=== PATIENT | male | born 1985 | race Caucasian/White ===

== ENCOUNTER 2018-04-24 08:24 | Emergency (ER) | payer MEDICAID | END 2018-04-24 09:42 | disposition home or self-care (01) | LOC: ED 08:24 ==

== ENCOUNTER 2020-03-26 11:55 | Emergency (ER) | payer MEDICAID ==
[2020-03-26 12:13] VITALS: BP 135/80; PULSE 100; O2SAT 96
--- NOTE | 2020-03-26 12:28 | ERPHSYRPT ---
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 Pt is R handed and denies other/prevoius injuries. Method of Injury: fell Quality: constant Severity of Pain-Max: moderate Severity of Pain-Current: moderate Extremities Pain Location: hand: right Modifying Factors: Improves With: movement Associated Symptoms: No back pain, No chills, No chest discomfort, No chest pain, No dyspnea, No fever, No jaw pain, No nausea, No neck pain, No sweating, No short of breath, No vomiting Allergies/Adverse Reactions: No Known Drug Allergies Allergy (Verified 03/26/20 12:13) Hx Tetanus, Diphtheria Vaccination/Date Given: (unknown) Hx Influenza Vaccination/Date Given: No Travel Risk - International Travel Have you traveled outside of the country in past 3 weeks: No - Coronavirus Screening Are you exhibiting any of the following symptoms?: No Close contact with a COVID-19 positive Pt in past 14-21 Days: No - Review of Systems Constitutional: No Symptoms Eyes: No Symptoms Ears, Nose, & Throat: No Symptoms Respiratory: No Symptoms Cardiac: No Symptoms Abdominal/Gastrointestinal: No Symptoms Genitourinary Symptoms: No Symptoms Skin: Other (Laceration R dorsal hand) Neurological: No Symptoms Psychological: No Symptoms Endocrine: No Symptoms Hematologic/Lymphatic: No Symptoms Immunological/Allergic: No Symptoms - Past Medical History Pertinent Past Medical History: No - Past Surgical History Past Surgical History: Yes - Social History Smoking Status: Never smoker Exposure to second hand smoke: No Drug Use: none Patient Lives Alone: No - Nursing Vital Signs Nursing Vital Signs: Initial Vital Signs Temperature 98.1 F 03/26/20 12:04 Pulse Rate 100 H 03/26/20 12:04 Blood Pressure 135/80 03/26/20 12:04 O2 Sat by Pulse Oximetry 96 03/26/20 12:04 Pain Scale Pain Intensity 6 - Physical Exam General Appearance: no apparent distress Eyes, Ears, Nose, Throat Exam: normal ENT inspection Neck Exam: normal inspection, non-tender Cardiovascular/Respiratory Exam: normal breath sounds, regular rate/rhythm, heart sounds normal Abdominal Exam: non-tender, soft Back Exam: normal inspection, normal range of motion, No CVA tenderness, No vertebral tenderness Shoulder Exam: normal inspection, non-tender, no evidence of injury Elbow/Forearm Exam: normal inspection, non-tender, no evidence of injury Wrist Exam: normal inspection, non-tender, no evidence of injury Hand Exam: bone tenderness (TTP R 3rd metacarpal distally w 2cm superficial laceration over MCP joint/FROM/No tendon injury/Good radial pulse, distal sensation, and capillary return) DTR - Upper Extremity Exam: bicep (R): 2+, bicep (L): 2+ Neuro/Tendon Exam: normal sensation, normal motor functions, normal tendon functions, responds to pain, no evidence tendon injury, No motor deficit, No sensory deficit Skin Exam: normal color SpO2 Interpretation: normal SpO2: 96 O2 Delivery: Oxymizer - Course Nursing assessment & vital signs reviewed: Yes - Radiology Exams Hand X-ray Interpretation: Interpreted by me (R hand neg) Ordered Tests: Active Orders 24 hr Category Date Time Status HAND (MINIMUM 3 VIEWS) Stat Exams 03/26/20 12:26 Taken - Progress Progress: improved Progress Note: 03/26/20 12:55 R 4th digit MCP lac cleaned w Hibiclens per nursing/NVI/Not sutured because >12hrs old Counseled pt/family regarding: need for follow-up - Departure Departure Disposition: Home Clinical Impression: Contusion of hand, right, Hand laceration Condition: Stable Critical Care Time: No Referrals: KATHERIN ANTONY [Primary Care Provider] - Instructions: Hand Pain (DC) Additional Instructions: Ice to hand for 12-24 hours Motrin/tylenol for pain Keep laceration dry for 48 hours, then wash 1-2 times a day with soap/water Watch for signs of infection-redness/pain/pus/temperature greater than 100.5 Keep steri-strips on until they fall off(Not greater than 14 days) Prescriptions: Cephalexin Mh 500 mg [Keflex 500 mg] 500 mg PO TID #21 capsule
--- NOTE | 2020-03-26 18:26 | XRAY ---
Indication: Pain following fall. Comparison: September 01, 2008. 3 view right hand obtained. Again no bony, articular, or soft tissue abnormalities.
== END 2020-03-26 13:08 | disposition home or self-care (01) ==
LOC: ED 11:55
DX: S60.221A Contusion of right hand, initial encounter (principal); S61.216A Laceration without foreign body of right little finger without damage to nail, initial encounter; W45.8XXA Other foreign body or object entering through skin, initial encounter
CPT/HCPCS: 73130; 99283